=== PATIENT | female | born 1975 | race Caucasian/White ===

== ENCOUNTER 2021-04-25 19:32 | Inpatient (IN) ==
[2021-04-25] MEDS ORDERED: SODIUM CHLORIDE 1,000 ML IV STA (20:12)
[2021-04-25 20:36] LABS: EOSINOPHILS % (AUTO) 1.3 % (0.0-7.0); IMMATURE GRANULOCYTE % (AUTO) 0.7 % (0.0-5.0); LYMPHOCYTES # (AUTO) 0.4 K/uL (0.60-3.4); LYMPHOCYTES % (AUTO) 28.7 (10.0-50.0); MEAN CORPUSCULAR HEMOGLOBIN 19.6 pg (27.0-31.0); MEAN CORPUSCULAR HGB CONC 26.7 (31.8-35.4); MEAN CORPUSCULAR VOLUME 73.2 fl (81.0-99.0); MONOCYTES # (AUTO) 0.2 K/uL (0.4-2.0); MONOCYTES % (AUTO) 10.7 (0-10); NEUTROPHILS # (AUTO) 0.9 K/ul (2.0-6.9); NEUTROPHILS % (AUTO) 58.6 % (42.2-75.2); PLATELET COUNT 58 10^3/uL (140-440); RDW COEFFICIENT OF VARIATION 17.8 % (11.6-14.8); RED BLOOD COUNT 2.35 10^6/ul (4.20-5.40)
[2021-04-25 20:48] LABS: ALANINE AMINOTRANSFERASE 25.9 U/L (0-35); ALBUMIN 3.31 g/dL (3.5-5.0); ALKALINE PHOSPHATASE 146.6 U/L (38-126); AMYLASE 61.1 U/L (30-110); ASPARTATE AMINO TRANSFERASE 107.8 U/L (14-36); BILIRUBIN,TOTAL 0.87 mg/dL (0.2-1.3); BLOOD UREA NITROGEN 9.4 mg/dL (7-17); CALCIUM 8.48 mg/dL (8.4-10.2); CARBON DIOXIDE 24.3 mmol/L (22-30.0); CHLORIDE 106.5 mmol/L (98-107); CREATININE 0.94 mg/dL (0.60-1.30); LIPASE 61.7 U/L (23-300); SODIUM 137.9 mmol/L (134.5-145); TOTAL PROTEIN 6.42 g/dL (6.3-8.2)
[2021-04-25 20:51] LABS: POTASSIUM 2.74 mmol/L (3.5-5.1)
--- NOTE | 2021-04-25 20:52 | CT ---
EXAM: CT of the abdomen pelvis without contrast History: Vomiting and diarrhea, abdominal pain. Technique: Multiplanar CT images through the abdomen pelvis were obtained without the administration of IV contrast Findings: Right pleural effusion. No acute osseous abnormalities. Status post cholecystectomy. Nodular cirrhotic architecture of the liver. Spleen is enlarged. Uppe r abdominal collateral vessels/varices. Evaluation for lymph nodes is limited due to lack of contras t administration. No abnormality of the pancreas. No renal stones and no hydronephrosis. The appen sirisha is not dilated or inflamed. No bladder wall thickening. Nondilated fluid filled loops of both l arge and small bowel. No abdominal aortic aneurysm. No free air and no ascites. Impression: 1. Cirrhosis with stigmata of portal venous hypertension including splenomegaly and varices. 2. Mild gastroenteritis. No bowel obstruction. 3. Right pleural effusion All CT scans are performed using dose optimization techniques as appropriate to the performed exam an d include at least one of the following: Automated exposure control, adjustment of the mA and/or kV according t o size, and the use of iterative reconstruction technique.
[2021-04-25 20:53] LABS: ANISOCYTOSIS NOT PRESENT (NOT PRESENT); HEMATOCRIT 17.2 % (37.0-47.0); HEMOGLOBIN 4.6 g/dl (12.0-16.0)
--- NOTE | 2021-04-25 20:53 | CT ---
EXAM: CT chest without contrast. HISTORY: Cough. PROCEDURE: Contiguous axial CT images of the chest without contrast with coronal and sagittal reform ats. FINDINGS: The heart and thoracic aorta are within normal limits in size. There is a 2 cm partially c alcified nodule in the left lobe of the thyroid gland. There are right lung infiltrates and minimal consolidation. There is a small to moderate layering right pleural effusion. The bones and soft tis sues are unremarkable. There is trace perihepatic ascites. The spleen is enlarged measuring 16.1 cm . The bones and soft tissues are unremarkable. Impression: Right lung infiltrates and consolidation as described, suspicious for pneumonia. Right pleural effusion as described. Thyroid nodule as described. Recommend non-emergent ultrasound for further evaluation. Trace perihepatic ascites. Splenomegaly as described. All CT scans are performed using dose optimization techniques as appropriate to the performed exam an d include at least one of the following: Automated exposure control, adjustment of the mA and/or kV according t o size, and the use of iterative reconstruction technique.
[2021-04-25 20:54] LABS: HYPOCHROMASIA 3+ (NOT PRESENT)
--- NOTE | 2021-04-25 21:07 | ED.PDOC ---
General ED Provider: Dr. IMER GUAMAN Chief Complaint: Nausea/Vomiting Stated Complaint: Comes to the Er with 2 day history of Nausea, vomiting and Diarrhea Denies vomiting any blood. Admits to using some Alcohol recently. Stated that she needs a transfusion as she has history of Ulcers. Time Seen by Provider: 04/25/21 20:05 Mode of Arrival: Walk-In Information Source: Patient Nursing and Triage Documentation Reviewed and Agree: Yes Does patient meet sepsis criteria?: No System Inflammatory Response Syndrome: Not Applicable Sepsis Protocol: For patient's 13 years and over: Temp is 96.8 and below OR 101 and greater Pulse >90 BPM Resp >20/minute Acutely Altered Mental Status Are patient's symptoms suggestive of a new infection, such as: -Pneumonia -Skin, Soft Tissue -Endocarditis -UTI -Bone, Joint Infection -Implantable Device -Acute Abdominal Infection -Wound Infection -Meningitis -Blood Stream Catheter Infection -Unknown GI Complaint Exam Abdominal Pain Complaint/Exam Onset: Gradual Vomiting/Diarrhea Complaint/Exam Onset/Duration: 2 days Symptoms Are: Still present Episodes of Vomiting over last 24 Hours: 4 Episodes of Diarrhea Over Last 24 Hours: 2 Initial Severity: Moderate Current Severity: Moderate Character of Vomiting: Reports Bilious Character of Diarrhea: Reports Watery Alleviating: Reports None Associated Signs and Symptoms: Denies Dizziness, Light-headedness, Melena, Hematemesis, Fever, Abdominal pain or Cramping Related History: Reports Similar episode Use of Oral Contraceptives: No Use of Depoprovera: No Compliant With Contraceptive Use: No Related Surgical History: Reports Cholecystectomy Abdominal Findings: Present Abdominal distention; Absent Rebound tenderness or McBurney's Point tender Kussmaul Respirations Present: No Differential Diagnoses: Bowel Obstruction, Cholelithiasis, Gastritis, PUD, Viral Gastroenteritis, Hepatitis and Pancreatitis Review of Systems Review Of Systems Constitutional: Reports No symptoms Eyes: Reports No symptoms Ears, Nose, Mouth, Throat: Reports No symptoms Respiratory: Reports No symptoms GI: Reports Abdominal pain, Diarrhea, Nausea and Vomiting Musculoskeletal: Reports No symptoms Skin: Reports No symptoms Neurological: Reports Anxiety Endocrine: Reports No symptoms Hematologic/Lymphatic: Reports No symptoms All Other Systems: Reviewed and Negative [facility] Medical History Cirrhosis Hypokalemia Iron deficiency anemia Family History (Updated 04/26/21 @ 01:52 by IMER GUAMAN MD) Other Family history unknown Social History Smoking and tobacco status: Current every day smoker Tobacco type: cigarettes Tobacco: How many years used: 33 (1/2 ppd) Passive smoking exposure: No Quit status: not considering quitting Second hand smoke exposure: No Surgical History H/O dilation and curettage H/O left knee surgery History of cholecystectomy Physical Exam Physical Exam Appearance: Reports Ill-appearing Ill-appearing: Moderate Pain Distress: Moderate Eyes: Reports ADAM and EOMI ENT: Reports Nose normal and Oropharynx normal Neck: Supple Respiratory: Reports Airway patent, Breath sounds clear and Breath sounds equal Cardiovascular: Reports RRR, Pulses normal and No rub GI/: Reports Soft and Tender Musculoskeletal: Reports Normal strength and ROM intact Skin: Reports Warm and Dry Neurological: Reports Motor intact, Alert and Oriented Psychiatric: Reports Anxious and Depressed Interpretation Radiology Interpretation Radiology Interpretation By: Radiologist Radiology Results: Positive (Right lung infiltrates and consolidation as described, suspicious for pneumonia. Right pleural effusion as described.) Exam Interpreted: CT Scan Radiology Interpretation By: Radiologist Radiology Results: Positive (1. Cirrhosis with stigmata of portal venous hypertension including splenomegaly and varices. 2. Mild gastroenteritis. No bowel obstruction. 3. Right pleural effusion) Exam Interpreted: CT Scan EKG Interpretation Rate: Normal Rhythm: Sinus Ectopy: None [place]: NL ST Segment: Normal Interpretation: old septal infarct and possible infero lateral ischemia, prolonged QT Physician Notification Case Discussed Physician Notified: Dr Gil Time of Notification: 22:40 (Declined Stating needs ICU cannot give Potassium on the floor or manage possible alcohol withdrawal or give blood, must have and ICU) Comments: Also called Christianity there were no beds. Critical Care Note Critical Care Note Total Critical Care Time (mins): 45 Comments: Attempted to transfer but no beds. Blood pressure stable. Will admit, Transfuse 2 units, replace potassium and Try to Transfer in the Am. Course Course Hematology/Chemistry: 04/26/21 03:30 04/25/21 20:30 Orders, Labs, Meds: Lab Review 04/25/21 04/25/21 04/25/21 20:30 20:30 20:30 WBC 1.50 L* RBC 2.35 L Hgb 4.6 L* Hct 17.2 L* MCV 73.2 L MCH 19.6 L MCHC 26.7 L RDW Coeff of Amy 17.8 H Plt Count 58 L Immature Gran % (Auto) 0.7 Neut % (Auto) 58.6 Lymph % (Auto) 28.7 Cloud % (Auto) 10.7 H Eos % (Auto) 1.3 Baso % (Auto) 0.0 Neut # (Auto) 0.9 L Lymph # (Auto) 0.4 L Cloud # (Auto) 0.2 L Eos # (Auto) 0.0 Baso # (Auto) 0.0 Immature Gran # (Auto) 0.0 Hypochromasia 3+ Anisocytosis Not present Sodium 137.9 Potassium 2.74 L* Chloride 106.5 Carbon Dioxide 24.3 Anion Gap 9.84 BUN 9.4 Creatinine 0.94 Estimated GFR (MDRD) 64.00 BUN/Creatinine Ratio 10.00 Glucose 109.0 H Calcium 8.48 Total Bilirubin 0.87 AST 107.8 H ALT 25.9 Alkaline Phosphatase 146.6 H Total Protein 6.42 Albumin 3.31 L Globulin 3.11 Albumin/Globulin Ratio 1.06 Amylase 61.1 Lipase 61.7 Plasma/Serum Alcohol Adenovirus (PCR) B. pertussis DNA (PCR) B.parapertussis DNA PCR C. pneumoniae DNA (PCR) Coronavirus OC43 (PCR) Coronavirus HKU1 (PCR) Coronavirus 229E (PCR) Coronavirus NL63 (PCR) Human Metapneumovir PCR Influenza Type A (PCR) Influenza B (RT-PCR) M. pneumoniae (PCR) Parainfluenza 1 (PCR) Parainfluenza 2 (PCR) Parainfluenza 3 (PCR) Parainfluenza 4 (PCR) RSV (PCR) Entero/Rhino (PCR) SARS-CoV-2 (PCR) Blood Type O POSITIVE Antibody Screen Crossmatch (AH) 04/25/21 04/25/21 04/25/21 21:15 21:30 23:05 WBC RBC Hgb Hct MCV MCH MCHC RDW Coeff of Amy Plt Count Immature Gran % (Auto) Neut % (Auto) Lymph % (Auto) Cloud % (Auto) Eos % (Auto) Baso % (Auto) Neut # (Auto) Lymph # (Auto) Cloud # (Auto) Eos # (Auto) Baso # (Auto) Immature Gran # (Auto) Hypochromasia Anisocytosis Sodium Potassium Chloride Carbon Dioxide Anion Gap BUN Creatinine Estimated GFR (MDRD) BUN/Creatinine Ratio Glucose Calcium Total Bilirubin AST ALT Alkaline Phosphatase Total Protein Albumin Globulin Albumin/Globulin Ratio Amylase Lipase Plasma/Serum Alcohol 20.4 Adenovirus (PCR) Not detected B. pertussis DNA (PCR) Not detected B.parapertussis DNA PCR Not detected C. pneumoniae DNA (PCR) Not detected Coronavirus OC43 (PCR) Detected H Coronavirus HKU1 (PCR) Not detected Coronavirus 229E (PCR) Not detected Coronavirus NL63 (PCR) Not detected Human Metapneumovir PCR Not detected Influenza Type A (PCR) Not detected Influenza B (RT-PCR) Not detected M. pneumoniae (PCR) Not detected Parainfluenza 1 (PCR) Not detected Parainfluenza 2 (PCR) Not detected Parainfluenza 3 (PCR) Not detected Parainfluenza 4 (PCR) Not detected RSV (PCR) Not detected Entero/Rhino (PCR) Not detected SARS-CoV-2 (PCR) Not detected Blood Type O POSITIVE Antibody Screen Negative Crossmatch (AHG) See Detail Orders Category Date Time Status EKG-(ED ONLY) Stat CARDIO 04/25/21 23:15 Completed ORDER H&H 1HR POST TRANSFUSION ONCE CARE 04/25/21 20:53 Active PRBC LEUKOREDUCED ONCE CARE 04/25/21 20:53 Active ED IV/MEDIPORT/POWERPORT .ONCE EMERGENCY 04/25/21 20:12 Active AMYLASE Stat LAB 04/25/21 20:30 Completed CBC W/ AUTO DIFF Stat LAB 04/25/21 20:30 Completed COMPREHENSIVE METABOLIC PANEL Stat LAB 04/25/21 20:30 Completed ETOH LEVEL [BLOOD ALCOHOL] Stat LAB 04/25/21 23:05 Completed LIPASE Stat LAB 04/25/21 20:30 Completed PACKED CELLS Routine LAB 04/25/21 21:30 Completed RBC MORPHOLOGY Stat LAB 04/25/21 20:30 Completed TYPE AND SCREEN Routine LAB 04/25/21 21:30 Completed URINALYSIS C & S IF INDICATED Stat LAB 04/25/21 23:28 Completed URINE DRUG SCREEN (RAPID FOR ED) [DRUG SCREEN, URINE, LAB 04/25/21 23:28 Completed RAPID] Stat 0.9 % Sodium Chloride [Saline Flush] MEDS 04/25/21 20:12 Active 1 syr IVF PRN PRN Morphine Sulfate [Morphine 2 mg/ml Vial] MEDS 04/25/21 22:52 Discontinued 2 mg IVP ONCE STA Ondansetron HCl/Pf [Zofran 4 mg/2 ml] MEDS 04/25/21 21:20 Discontinued 4 mg IVP ONCE STA Ondansetron HCl/Pf [Zofran 4 mg/2 ml] MEDS 04/25/21 22:53 Discontinued 4 mg IVP ONCE STA Pantoprazole Sodium [Protonix IV] MEDS 04/25/21 21:24 Discontinued 80 mg IVP ONCE ONE Piperacillin Sodium/Tazobactam [Zosyn 3.375 gm] 3.375 MEDS 04/25/21 22:50 Discontinued gm 0.9 % Sodium Chloride [Sodium Chloride] 50 ml IV ONCE Potassium Chloride [Potassium Chloride 10 Meq/100 ml MEDS 04/25/21 21:19 Discontinued Premix] 10 meq in 100 ml IV ONCE Sodium Chloride 0.9% [Sodium Chloride] 1,000 ml MEDS 04/25/21 20:[address] ABD/PEL WO RENAL STONE PROT Stat RADS 04/25/21 20:[address] CHEST W/O CONTRAST Stat RADS 04/25/21 20:29 Completed Medications Generic Name Dose Route Start Last Admin Trade Name Freq PRN Reason Stop Dose Admin Furosemide 20 mg 04/25/21 23:49 Furosemide Inj 20 Mg/2 Ml Vial IVP ONCE PRN After Blood transfusion Potassium Chloride/Dextrose/Sod Cl 1,000 mls @ 75 mls/hr 04/25/21 23:45 D5%-Ns-Kcl 20 Meq/L Iv Daya IV .[id number] KAMERON Piperacillin Sod/Tazobactam 50 mls @ 50 mls/hr 04/26/21 00:00 04/26/21 04:28 Sod 3.375 gm/ Sodium Chloride IV 04/29/21 00:00 Not Given Q6HR KAMERON Morphine Sulfate 2 mg 04/25/21 23:43 Morphine Sulfate 2 Mg/Ml Vial IVP Q4H PRN Severe Pain Ondansetron HCl 4 mg 04/25/21 23:43 Ondansetron Hcl/Pf 4 Mg/2 Ml Sdv IVP Q6H PRN Nausea / Vomiting Pantoprazole Sodium 40 mg 04/26/21 09:00 Pantoprazole Sodium 40 Mg Vial IVP BID KAMERON Potassium Chloride 20 meq 04/26/21 09:00 Potassium Chloride 20 Meq Tab PO TID KAMERON Sodium Chloride 1 syr 04/25/21 20:12 0.9% Sodium Chloride 10 Ml Disp.Syrin IVF PRN PRN To flush IV Discontinued Medications Generic Name Dose Route Start Last Admin Trade Name Freq PRN Reason Stop Dose Admin Sodium Chloride 1,000 mls @ 1,000 mls/hr 04/25/21 20:12 04/25/21 20:58 Sodium Chloride IV 04/25/21 21:11 1,000 mls/hr BOLUS STA Administration Potassium Chloride 10 meq in 100 mls @ 100 mls/hr 04/25/21 21:19 04/25/21 21:25 Potassium Chloride 10 Meq/100 Ml Premix IV 04/25/21 22:18 100 mls/hr ONCE STA Administration Piperacillin Sod/Tazobactam 50 mls @ 50 mls/hr 04/25/21 22:50 04/26/21 04:28 Sod 3.375 gm/ Sodium Chloride IV 04/25/21 23:49 Not Given ONCE ONE Morphine Sulfate 2 mg 04/25/21 22:52 04/25/21 23:00 Morphine Sulfate 2 Mg/Ml Vial IVP 04/25/21 22:53 2 mg ONCE STA Administration Ondansetron HCl 4 mg 04/25/21 21:20 04/25/21 21:25 Ondansetron Hcl/Pf 4 Mg/2 Ml Sdv IVP 04/25/21 21:21 4 mg ONCE STA Administration Ondansetron HCl 4 mg 04/25/21 22:53 04/25/21 23:02 Ondansetron Hcl/Pf 4 Mg/2 Ml Sdv IVP 04/25/21 22:54 4 mg ONCE STA Administration Pantoprazole Sodium 80 mg 04/25/21 21:24 04/25/21 21:29 Pantoprazole Sodium 40 Mg Vial IVP 04/25/21 21:25 80 mg ONCE ONE Administration Vital Signs: Temp Pulse Resp BP Pulse Ox 04/25/21 23:18 98.9 F 77 14 116/61 04/25/21 23:09 99.0 F 78 14 110/62 04/25/21 19:33 99 F 76 16 104/66 96 Discharge Plan Discharge Patient Disposition: ADMITTED INPATIENT Discharge Problem: Acute hypokalemia, Pneumonia, Nausea, Vomiting Anemia Qualifiers: Anemia type: iron deficiency Iron deficiency anemia type: unspecified iron deficiency Qualified Code(s): D50.9 - Iron deficiency anemia, unspecified ED Provider: IMER GUAMAN Condition: Fair Physician Progress Note: []
[2021-04-25 21:16] LABS: BORDETELLA PARAPERTUSSIS (PCR) NOT DETECTED (NOT DETECT); BORDETELLA PERTUSSIS (PCR) NOT DETECTED (NOT DETECT); CHLAMYDIA PNEUMONIAE (PCR) NOT DETECTED (NOT DETECT); CORONAVIRUS 229E (PCR) NOT DETECTED (NOT DETECT); CORONAVIRUS HKU1 (PCR) NOT DETECTED (NOT DETECT); CORONAVIRUS NL63 (PCR) NOT DETECTED (NOT DETECT); HUMAN METAPNEUMOVIRUS (PCR) NOT DETECTED (NOT DETECT); HUMAN RHINOVIRUS/ENTEROV (PCR) NOT DETECTED (NOT DETECT); INFLUENZA B (PCR) NOT DETECTED (NOT DETECT); MYCOPLASMA PNEUMONIAE (PCR) NOT DETECTED (NOT DETECT); PARAINFLUENZA VIRUS 1 (PCR) NOT DETECTED (NOT DETECT); PARAINFLUENZA VIRUS 2 (PCR) NOT DETECTED (NOT DETECT); PARAINFLUENZA VIRUS 3 (PCR) NOT DETECTED (NOT DETECT); PARAINFLUENZA VIRUS 4 (PCR) NOT DETECTED (NOT DETECT); RESPIRATORY SYNCYTIAL V (PCR) NOT DETECTED (NOT DETECT); SARS_COV_2 (PCR) NOT DETECTED (NOT DETECT)
[2021-04-25] MEDS ORDERED: POTASSIUM CHLORIDE 10 MEQ/100 ML PREMIX 10 MEQ/100 ML BAG IV STA (21:19)
[2021-04-25] MEDS ORDERED: ZOFRAN 4 MG/2 ML IVP STA ×2 (21:20→22:53)
[2021-04-25] MEDS ORDERED: PROTONIX IV IVP ONE (21:24)
[2021-04-25 22:05] LABS: ADENOVIRUS (PCR) NOT DETECTED (NOT DETECT); CORONAVIRUS OC43 (PCR) DETECTED (NOT DETECT)
[2021-04-25] MEDS ORDERED: ZOSYN 3.375 GM 3.375 GM in SODIUM CHLORIDE 50 ML IV ONE (22:50)
[2021-04-25] MEDS ORDERED: MORPHINE 2 MG/ML VIAL IVP STA (22:52)
[2021-04-25 23:33] LABS: BILIRUBIN,URINE Negative (NEGATIVE); CLARITY,URINE Cloudy (CLEAR); COLOR,URINE Yellow (YELLOW); GLUCOSE, URINE (UA) Negative (NEGATIVE); KETONES,URINE Negative (NEGATIVE); LEUKOCYTE ESTERASE ,URINE 1+ (NEGATIVE); NITRITE,URINE Positive (NEGATIVE); PROTEIN,URINE Negative (NEGATIVE); URINE, BLOOD Negative (NEGATIVE); UROBILINOGEN,URINE 0.2 (0.2)
[2021-04-25 23:40] LABS: URINE WBC, MICROSCOPIC 20-30 (0-2)
[2021-04-25 23:41] LABS: BACTERIA,URINE 4+ (NOT PRESENT); MUCUS,URINE TRACE (NOT PRESENT)
[2021-04-25] MEDS ORDERED: ZOFRAN 4 MG/2 ML IVP PRN (23:43)
[2021-04-25] MEDS ORDERED: D5%-NS-KCL 20 MEQ/L IV SOL 1,000 ML IV SCH (23:45)
[2021-04-25 23:48] LABS: AMPHETAMINE SCREEN,URINE NEGATIVE (NEGATIVE); BARBITURATE SCREEN,URINE NEGATIVE (NEGATIVE); BENZODIAZEPINES SCREEN,URINE NEGATIVE (NEGATIVE); CANNABINOID SCREEN,URINE POSITIVE (NEGATIVE); COCAIN SCREEN,URINE NEGATIVE (NEGATIVE); METHADONE URINE SCREEN NEGATIVE (NEGATIVE); METHAMPHETAMINES SCREEN,URINE NEGATIVE (NEGATIVE); OPIATE SCREEN,URINE POSITIVE (NEGATIVE); OXYCODONE URINE SCREEN NEGATIVE (NEGATIVE); PHENCYCLIDINE SCREEN,URINE NEGATIVE (NEGATIVE); PROPOXYPHENE URINE SCREEN NEGATIVE (NEGATIVE); TRICYCLIC ANTIDEPRESSANTS URIN NEGATIVE (NEGATIVE)
[2021-04-25] MEDS ORDERED: LASIX IVP PRN (23:49)
[2021-04-26 00:26] VITALS: BMI 22.3
[2021-04-26 00:53] LABS: IRON 344.2 ug/dL (37-170)
[2021-04-26 04:04] LABS: HEMATOCRIT 17.4 % (37.0-47.0); HEMOGLOBIN 5.1 g/dl (12.0-16.0)
[2021-04-26] MEDS: ZOSYN 3.375 GM 3.375 GM in SODIUM CHLORIDE 100ML 50 ML IV SCH ×2 (04:28→09:50)
--- NOTE | 2021-04-26 07:56 | PCM.PROG ---
Date Seen by Provider: 04/26/21 Time Seen by Provider: 07:30 Subjective: Pt feels slightly better after 2 Units of blood. Has a mild cough. Objective: Vitals: T=98.9 F, P=76, R=18, ZW=444/68, SPO2=97 HEENT: Pale conjunctiva, PERRL, EOMI Neck: supple Lungs: Decreased BS in right lung base CVS: RRR Abdomen: Soft, non-tender Neurological: A+O x 3, no focal findings Skin: slight pallor Lab/Tests/Diagnostic Imaging: Hb 4.6 -> 5.1 after 1 Unit blood. (1) GI bleeding: Status: Acute Code(s): K92.2 - Gastrointestinal hemorrhage, unspecified SNOMED Code(s): 55477764 (2) Anemia: Status: Acute Code(s): D64.9 - Anemia, unspecified SNOMED Code(s): 228939166 (3) Pneumonia: Status: Acute Code(s): J18.9 - Pneumonia, unspecified organism SNOMED Code(s): 517123203 (4) Acute hypokalemia: Status: Acute Code(s): E87.6 - Hypokalemia SNOMED Code(s): 03915972 Plan: 1. Anemia: Pt has significant anemia with history of cirrhosis. Hb slighyl increased after 1 unit blood from 4.6 to 5.1. Likely GI bleeding from ulcer or varices as per her history. Will add INR given liver disease history. Will al so add hemoccult to determine if pt is having a GI bleed which is likely. Given pts history and anemia, she needs a higher level of care with GI available. Will attempt to transfer today. Will increase transfusion to 4 Units blood total. 2. Hypokalemia: Recheck labs and treat hypokalemia as needed. 3. Pneumonia: Pt has possbile pneumonia on CT. Receiveing Zosyn and will continue.
[2021-04-26] MEDS: MORPHINE 2 MG/ML VIAL IVP PRN ×2 (08:08→13:03)
[2021-04-26] MEDS: ZOSYN 3.375 GM 3.375 GM in SODIUM CHLORIDE 50 ML IV SCH ×2 (08:15→13:35)
[2021-04-26 08:26] LABS: ALANINE AMINOTRANSFERASE 29.4 U/L (0-35); ALBUMIN 2.9 g/dL (3.5-5.0); ALKALINE PHOSPHATASE 134.1 U/L (38-126); ASPARTATE AMINO TRANSFERASE 132.6 U/L (14-36); BILIRUBIN,TOTAL 2.76 mg/dL (0.2-1.3); BLOOD UREA NITROGEN 6.9 mg/dL (7-17); CALCIUM 7.4 mg/dL (8.4-10.2); CARBON DIOXIDE 17.7 mmol/L (22-30.0); CHLORIDE 104.2 mmol/L (98-107); CREATININE 0.83 mg/dL (0.60-1.30); GLUCOSE 110.7 mg/dL (74-106); PROTHROMBIN TIME 14.1 SEC (9.3-11.0); SODIUM 131.3 mmol/L (134.5-145); TOTAL PROTEIN 5.98 g/dL (6.3-8.2)
[2021-04-26 08:29] LABS: POTASSIUM 2.58 mmol/L (3.5-5.1)
[2021-04-26] MEDS ORDERED: K-DUR PO SCH (08:30)
[2021-04-26 08:35] LABS: BASOPHILS % (AUTO) 0.6 % (0.0-3.0); EOSINOPHILS # (AUTO) 0.1 K/ul (0.0-0.7); EOSINOPHILS % (AUTO) 2.9 % (0.0-7.0); HEMOGLOBIN 6.1 g/dl (12.0-16.0); IMMATURE GRANULOCYTE % (AUTO) 1.2 % (0.0-5.0); LYMPHOCYTES # (AUTO) 0.4 K/uL (0.60-3.4); LYMPHOCYTES % (AUTO) 22.9 (10.0-50.0); MEAN CORPUSCULAR HEMOGLOBIN 22.3 pg (27.0-31.0); MEAN CORPUSCULAR HGB CONC 30.5 (31.8-35.4); MEAN CORPUSCULAR VOLUME 73.3 fl (81.0-99.0); MONOCYTES # (AUTO) 0.1 K/uL (0.4-2.0); MONOCYTES % (AUTO) 4.1 (0-10); NEUTROPHILS # (AUTO) 1.2 K/ul (2.0-6.9); NEUTROPHILS % (AUTO) 68.3 % (42.2-75.2); PLATELET COUNT 59 10^3/uL (140-440); RDW COEFFICIENT OF VARIATION 16.8 % (11.6-14.8); RED BLOOD COUNT 2.73 10^6/ul (4.20-5.40)
[2021-04-26 08:39] LABS: ANISOCYTOSIS NOT PRESENT (NOT PRESENT); HYPOCHROMASIA 1+ (NOT PRESENT)
[2021-04-26] MEDS ORDERED: POTASSIUM CHL 10% ORAL SOL PO ONE (08:49)
[2021-04-26] MEDS ORDERED: PROTONIX IV IVP SCH (09:00)
--- NOTE | 2021-04-26 11:45 | PCM.DC ---
Final Diagnosis: Anemia Cirrhosis with esophageal varices GI Bleed (Likely) Hypokalemia Physical Exam Appearance: Ill-appearing, No pain distress and Well-nourished Ill-appearing: Mild Pain Distress: None Eyes: ADAM, EOMI and Conjunctiva clear ENT: Ears normal, Nose normal and Oropharynx normal Neck: Supple Respiratory: Airway patent, Breath sounds clear, Breath sounds equal and Respirations nonlabored Cardiovascular: RRR, Pulses normal, No rub and No murmur GI/: Soft, Nontender, No masses, Bowel sounds normal and No Organomegaly Musculoskeletal: Normal strength, ROM intact, No edema and No calf tenderness Skin: Warm, Dry and Normal color Neurological: Sensation intact, Motor intact, Reflexes intact, Cranial nerves intact, Alert and Oriented Psychiatric: Affect appropriate and Mood appropriate (1) GI bleeding: Status: Acute Code(s): K92.2 - Gastrointestinal hemorrhage, unspecified SNOMED Code(s): 16870537 (2) Anemia: Status: Acute Code(s): D64.9 - Anemia, unspecified SNOMED Code(s): 297945459 Qualifiers: Anemia type: iron deficiency Iron deficiency anemia type: unspecified iron deficiency Qualified Code(s): D50.9 - Iron deficiency anemia, unspecified (3) Pneumonia: Status: Acute Code(s): J18.9 - Pneumonia, unspecified organism SNOMED Code(s): 786715711 (4) Acute hypokalemia: Status: Acute Code(s): E87.6 - Hypokalemia SNOMED Code(s): 97872751 Reason for Hospitalization: Anemia, possible GI bleed, hypokalemia, right pleural effusion with possible pneumonia Prognosis/Condition at Discharge: Guarded Medications at Discharge: Ambulatory Orders Medication Instructions Recorded 1 [Unobtainable] 04/25/21 Lab/Diagnostics: Last Hb 6.1, last K+ 2.6 Education Provided to Patient and Family: Stop alcohol and follow up closely with GI Discharge Disposition: Acute Care Facility Hospital Course: Pt was admitted. Given blood for anemia. Given K+ for repletion. Given Zosyn for possible pneumonia. Vitals remained stable. Accepted for transfer by Dr. Newsome at [facility] Plan: 1. Anemia: Transfuse Blood 2. Hypokalemia: Replete potassium 3. Pneumonia: Antibiotics 4. Possible GI bleed and cirrhosis: Transfer to [facility] for GI evaluation
[2021-04-26] MEDS ORDERED: POTASSIUM CHL 10% ORAL SOL PO SCH (12:00)
[2021-04-26 12:23] VITALS: BP 118/69; TEMP 99.5
[2021-04-26] MEDS ORDERED: ZOFRAN 4 MG/2 ML IVP STA (12:55)
== END 2021-04-26 13:30 | DRG 377 ==
LOC: ED 19:32 → MEDSURG A 23:21
PROVIDERS: ADMIT Internal Medicine Geriatric Medicine; ATTEND Emergency Medicine
DX: D50.9 Iron deficiency anemia, unspecified; K74.60 Unspecified cirrhosis of liver; K92.2 Gastrointestinal hemorrhage, unspecified; R05.9 Cough, unspecified; F17.210 Nicotine dependence, cigarettes, uncomplicated; J18.9 Pneumonia, unspecified organism; E87.6 Hypokalemia; R11.2 Nausea with vomiting, unspecified; Z20.822 Contact with and (suspected) exposure to COVID-19